=== PATIENT | male | born 1950 | race Caucasian/White ===

== ENCOUNTER → 2017-01-06 | Outpatient (CLI) | payer BC ==
[~2017-01-06] MED LIST: ONDA4TAB10 SL
[2017-01-06 14:21] LABS: INFLUENZA A PCR Neg for Influ A (NEG); INFLUENZA B PCR Neg for Influ B (NEG)
== END | disposition home or self-care (01) ==
LOC: C.LABMFLN 13:49
PROVIDERS: ATTEND Family Medicine
DX: R69 Illness, unspecified (principal)

== ENCOUNTER 2017-01-10 16:43 | Emergency (ER) | payer BC ==
[~2017-01-10] VITALS: Ht 182.9 cm; Wt 106.0 kg
[2017-01-10 16:53] VITALS: TEMP 36.7; Ht 182.9 cm; Wt 106.0 kg
[2017-01-10] MEDS ORDERED: ONDANSETRON INJ 2 MG/ML 2 ML VIAL IV STA (17:46)
[2017-01-10] MEDS ORDERED: KETOROLAC TROMETHAMINE 30 MG/ML VIAL IV STA (17:46)
[2017-01-10] MEDS ORDERED: SODIUM CHLORIDE 0.9% 1000ML 1,000 ML IV STA (17:46)
--- NOTE | 2017-01-10 18:09 | EMERGENCY ROOM VISIT NOTE ---
History Report prepared by Pilar: Yaneth Jorge Under the Supervision of: Dr. Duane Tineo M.D. First contact with patient: 17:38 Chief Complaint: VOMITING Stated Complaint: VOMITING,DIARRHEA,COUGHING Nursing Triage Summary: Patient c/o of diarrhea, cough, "rattling in the lungs", nausea and vomiting since Friday last week. History of Present Illness The patient is a 66 year old male who presents to the Emergency Room with complaints of persistent vomiting that started about 4 hours ago. The patient states that he started feeling sick one week ago. He saw his PCP and they prescribed him Tamiflu along with an antibiotic because they said his "lungs were rattling." He didn't feel well on Friday so he called and went back in. He tested negative for the flu at that time, but they told him to finish the Tamiflu and his antibiotics. The patient states that he worked the last two nights and felt well when he got home this morning. He went to sleep and when he woke up around 1300 he began experiencing nausea, vomiting, and diarrhea. The patient states that the vomit is green in color. He experienced abdominal pain prior to vomiting. He states that he is also experiencing a cough and chest congestion. The patient did not try to relieve his symptoms with Tylenol or ibuprofen. He still has his gallbladder and appendix. Source of History: patient Onset: 4 hours ago Quality: other (vomiting) Timing: other (persistent) Associated Symptoms: + abdominal pain, + cough, + diarrhea, + nausea Note: chest congestion Review of Systems See HPI for pertinent positives & negatives. A total of 10 systems reviewed and were otherwise negative. Past Medical & Surgical Surgical Problems: (1) Hernia Family History No significant family history Social History Smoking Status: Never Smoker Smokeless Tobacco Use: No Alcohol Use: none Drug Use: none Marital Status: Housing Status: lives with significant other Occupation Status: employed Current/Historical Medications Scheduled Ondasetron Odt (Zofran Odt), 4 MG SL Q6H Allergies Coded Allergies: Celecoxib (Unverified Allergy, Unknown, "HIVES,RED SPOT HYDABURG", 01/10/17) Physical Exam Vital Signs Date Time Temp Pulse Resp B/P Pulse Ox O2 Delivery O2 Flow Rate FiO2 01/10/17 20:33 110 18 109/70 98 01/10/17 18:21 111 01/10/17 18:17 97 Room Air 01/10/17 16:53 36.7 114 18 134/81 96 Room Air Physical Exam GENERAL: Patient is a healthy-appearing well-nourished male. HEAD: Normocephalic atraumatic EYES: Ocular movements intact pupils equal and react to light OROPHARYNX mucous membranes are moist no exudates present no erythema or edema present NECK: Supple no nuchal rigidity CHEST: Good equal expansion LUNGS: Clear and equal to auscultation CARDIAC: Normal S1 and S2 ABDOMEN: Soft nontender no guarding BACK: No CVA tenderness EXTREMITIES: No pain upon palpation normal muscle strength in all groups no clubbing cyanosis or edema NEURO: Patient is following commands is answering questions appropriately. Alert and oriented x3 Cranial Nerves 2-12 grossly intact Medical Decision & Procedures ER Provider Diagnostic Interpretation: X-ray results as stated below per interpretation by me and the radiologist: PA CHEST RADIOGRAPH AND UPRIGHT AND SUPINE AP RADIOGRAPHS OF THE ABDOMEN IMPRESSION: 1. No free air or evidence of bowel obstruction. 2. No acute cardiopulmonary findings. 3. Mild elevation of the right hemidiaphragm. Electronically signed by: Ric Flores M.D. 01/10/2017 7:07 PM Dictated Date/Time: 01/10/2017 7:04 PM Laboratory Results 01/10/17 18:38 Red Blood Count 5.41, Mean Corpuscular Volume 80.6, Mean Corpuscular Hemoglobin 27.2, Mean Corpuscular Hemoglobin Concent 33.7, Mean Platelet Volume 9.3, Neutrophils (%) (Auto) 89.8, Lymphocytes (%) (Auto) 2.8, Monocytes (%) (Auto) 6.3, Eosinophils (%) (Auto) 0.8, Basophils (%) (Auto) 0.1, Neutrophils # (Auto) 8.76, Lymphocytes # (Auto) 0.27, Monocytes # (Auto) 0.61, Eosinophils # (Auto) 0.08, Basophils # (Auto) 0.01 01/10/17 18:38 Test 01/10/17 00:00 01/10/17 18:38 Influenza Type A (RT-PCR) Neg for Influ A (NEG) Influenza Type B (RT-PCR) Neg for Influ B (NEG) White Blood Count 9.75 K/uL (4.8-10.8) Red Blood Count 5.41 M/uL (4.7-6.1) Hemoglobin 14.7 g/dL (14.0-18.0) Hematocrit 43.6 % (42-52) Mean Corpuscular Volume 80.6 fL (80-100) Mean Corpuscular Hemoglobin 27.2 pg (25-34) Mean Corpuscular Hemoglobin Concent 33.7 g/dl (32-36) Platelet Count 227 K/uL (130-400) Mean Platelet Volume 9.3 fL (7.4-10.4) Neutrophils (%) (Auto) 89.8 % Lymphocytes (%) (Auto) 2.8 % Monocytes (%) (Auto) 6.3 % Eosinophils (%) (Auto) 0.8 % Basophils (%) (Auto) 0.1 % Neutrophils # (Auto) 8.76 K/uL (1.4-6.5) Lymphocytes # (Auto) 0.27 K/uL (1.2-3.4) Monocytes # (Auto) 0.61 K/uL (0.11-0.59) Eosinophils # (Auto) 0.08 K/uL (0-0.5) Basophils # (Auto) 0.01 K/uL (0-0.2) RDW Standard Deviation 40.5 fL (36.4-46.3) RDW Coefficient of Variation 13.7 % (11.5-14.5) Immature Granulocyte % (Auto) 0.2 % Immature Granulocyte # (Auto) 0.02 K/uL (0.00-0.02) Anion Gap 10.0 mmol/L (3-11) Est Creatinine Clear Calc Drug Dose 98.6 ml/min Estimated GFR () 98.2 Estimated GFR (Non- 84.7 BUN/Creatinine Ratio 17.1 (10-20) Calcium Level 9.0 mg/dl (8.5-10.1) Total Bilirubin 0.9 mg/dl (0.2-1) Aspartate Amino Transf (AST/SGOT) 17 U/L (15-37) Alanine Aminotransferase (ALT/SGPT) 26 U/L (12-78) Alkaline Phosphatase 54 U/L (45-117) Total Protein 7.3 gm/dl (6.4-8.2) Albumin 3.8 gm/dl (3.4-5.0) Globulin 3.5 gm/dl (2.5-4.0) Albumin/Globulin Ratio 1.1 (0.9-2) Lipase 141 U/L (73-393) Labs reviewed by ED physician. Medications Administered Medications (Trade) Dose Ordered Sig/Ady Route Start Time Stop Time Status Last Admin Dose Admin Sodium Chloride (Nss 1000ml) 1,000 ml @ 999 mls/hr Q1H1M STAT IV 01/10/17 17:46 01/10/17 18:46 DC 01/10/17 18:43 999 MLS/HR Ondansetron HCl (Zofran Inj) 4 mg NOW STAT IV 01/10/17 17:46 01/10/17 17:48 DC 01/10/17 18:43 4 MG Ketorolac Tromethamine (Toradol Inj) 30 mg NOW STAT IV 01/10/17 17:46 01/10/17 17:48 DC 01/10/17 18:43 30 MG ECG Indication: abdominal pain, nausea Rate (beats per minute): 114 Rhythm: sinus tachycardia Findings: no acute ischemic change, no ectopy ED Course 1739: Past medical records reviewed. The patient was evaluated in room B3. A complete history and physical examination was performed. 1745: Ordered Toradol Inj 30 mg IV, Zofran Inj 4 mg IV, Sodium Chloride 1000 ml @ 999 mls/hr IV 1957: Upon reexamination the patient is doing well. I discussed results and treatment plan with the patient. He verbalizes agreement and understanding. The patient is ready for discharge. 1999: Ordered Ondansetron HCl 1 homepack PO 2001: Ordered Albuterol 2 puffs INH Medical Decision Differential diagnosis: Etiologies such as appendicitis, diverticulitis, PUD, biliary pathology, UTI, pancreatitis, obstruction, mesenteric ischemia, aortic pathology, infections, inflammatory bowel disease, renal colic, as well as others were entertained. This is a 66-year-old male who presents emergency department complaining of nausea vomiting diarrhea. The patient was observed for a total of 3 hours in the emergency department and at no time was he able to produce a stool sample. An IV was established, patient given normal saline bolus. Serial abdominal examinations were performed on the patient in the emergency department and at no time did the patient exhibit a surgical abdomen. Based on these findings I felt that the patient could be treated conservatively. He was given Zofran and Toradol. Repeat examination revealed improvement patient's symptoms. I do believe that the patient can be safely discharged home. I suspect his diarrhea is results of azithromycin. I encouraged probiotic yogurt. Patient and are in agreement with the treatment plan. Impression Primary Impression: Gastroenteritis Scribe Attestation The scribe's documentation has been prepared under my direction and personally reviewed by me in its entirety. I confirm that the note above accurately reflects all work, treatment, procedures, and medical decision making performed by me. Departure Information Dispostion Home / Self-Care Prescriptions Ondasetron Odt (ZOFRAN ODT) 4 Mg Tab 4 MG SL Q6H for Nausea, #6 TAB Prov: Duane Tineo MD 01/10/17 Referrals Scotty Gallo M.D. (PCP) Forms HOME CARE DOCUMENTATION FORM, IMPORTANT VISIT INFORMATION Patient Instructions ED Diet Vomiting Diarrhea, ED Gastroenteritis Report Pend, My [facility], Ondansetron Hydrochloride Oral tablet Additional Instructions Take 4 mg zofran every 6 hours Take 1000 mg TYlenol every 6 hours You have been examined and treated today on an emergency basis only. This is not a substitute for, or an effort to provide, complete comprehensive medical care. It is impossible to recognize and treat all injuries or illnesses in a single emergency department visit. It is therefore important that you follow up closely with Dr Gallo. Call as soon as possible for an appointment. Thank you for your time and consideration. I look forward to speaking with you again soon. Please don't hesitate to call us if you have any questions.
[2017-01-10 18:17] VITALS: O2SAT 97
[2017-01-10 18:47] LABS: BASO % 0.1 %; BASO ABS # 0.01 K/uL (0-0.2); COMPLETE YES; EOS % 0.8 %; HEMATOCRIT 43.6 % (42-52); IG% 0.2 %; LYMPH % 2.8 %; LYMPH ABS # 0.27 K/uL (1.2-3.4); MEAN CELL VOLUME 80.6 fL (80-100); MEAN CORPUSCULAR HEMOGLOBIN 27.2 pg (25-34); MEAN CORPUSCULAR HGB CONC 33.7 g/dl (32-36); MEAN PLATELET VOLUME 9.3 fL (7.4-10.4); MONO % 6.3 %; NEUT % 89.8 %; PLATELET COUNT 227 K/uL (130-400); RED BLOOD COUNT 5.41 M/uL (4.7-6.1); WHITE BLOOD COUNT 9.75 K/uL (4.8-10.8)
--- NOTE | 2017-01-10 19:08 | DIAGNOSTIC IMAGING REPORT ---
PA CHEST RADIOGRAPH AND UPRIGHT AND SUPINE AP RADIOGRAPHS OF THE ABDOMEN CLINICAL HISTORY: Nausea, vomiting and diarrhea. COMPARISON STUDY: No previous studies for comparison. FINDINGS: There is mild elevation of the right hemidiaphragm. Lungs are clear. There is no pneumothorax or pleural effusion. Cardiac size is normal. Mediastinal contours are normal. There is no evidence of pulmonary edema. No free air is identified. There is a relative paucity of bowel gas. There is no convincing evidence for a bowel obstruction. Pelvic calcifications statistically represent phleboliths. IMPRESSION: 1. No free air or evidence of bowel obstruction. 2. No acute cardiopulmonary findings. 3. Mild elevation of the right hemidiaphragm. Electronically signed by: Ric Flores M.D. 01/10/2017 7:07 PM Dictated Date/Time: 01/10/2017 7:04 PM
[2017-01-10 19:13] LABS: BUN/CREATININE RATIO 17.1 (10-20); CREATININE 0.94 mg/dl (0.60-1.40); POTASSIUM 4.2 mmol/L (3.5-5.1)
[2017-01-10 19:16] LABS: ALB/GLOB RATIO 1.1 (0.9-2)
[2017-01-10 19:42] LABS: INFLUENZA A PCR Neg for Influ A (NEG); INFLUENZA B PCR Neg for Influ B (NEG)
[2017-01-10] MEDS ORDERED: ONDANSETRON HOME PACK 4MG OD TAB PO ONE (20:00)
[2017-01-10] MEDS ORDERED: ONDA4TAB10 SL (20:01)
[2017-01-10] MEDS ORDERED: ALBUTEROL HFA 8 GM INHALER INH STA (20:02)
[2017-01-10 20:33] VITALS: BP 109/70; PULSE 110; O2SAT 98
== END 2017-01-10 20:34 | disposition home or self-care (01) ==
LOC: EDBD 16:44 → C.EDB 16:44 → MERGE 16:44 → C.EDB 20:34
DX: K52.9 Noninfective gastroenteritis and colitis, unspecified (principal); R00.0 Tachycardia, unspecified; Z88.8 Allergy status to other drugs, medicaments and biological substances

== ENCOUNTER → 2017-02-03 | Outpatient (CLI) | payer BC ==
[2017-02-03 18:22] LABS: AST/SGOT 17 U/L (15-37); BLOOD UREA NITROGEN 13 mg/dl (7-18); BUN/CREATININE RATIO 13.1 (10-20); CALCIUM 9.8 mg/dl (8.5-10.1); CARBON DIOXIDE 28 mmol/L (21-32); CHLORIDE 103 mmol/L (98-107); CHOLESTEROL 220 mg/dl (0-200); CREATININE 0.99 mg/dl (0.60-1.40); GLUCOSE 95 mg/dl (70-99); GLUCOSE,FASTING 95 mg/dl (70-99); SODIUM 141 mmol/L (136-145); TRIGLYCERIDES 128 mg/dl (0-150); VERY LOW DENSITY LIPOPROT CALC 26 mg/dl
[2017-02-03 18:32] LABS: CHOLESTEROL/HDL RATIO 5.4; HDL CHOLESTEROL 41 mg/dl; LDL CHOLESTEROL CALCULATED 153 mg/dl
[2017-02-03 18:50] LABS: BASO % 0.6 %; BASO ABS # 0.03 K/uL (0-0.2); COMPLETE YES; EOS % 4.2 %; HEMATOCRIT 40.2 % (42-52); LYMPH ABS # 1.51 K/uL (1.2-3.4); MEAN CELL VOLUME 80.1 fL (80-100); MEAN CORPUSCULAR HEMOGLOBIN 26.5 pg (25-34); MEAN CORPUSCULAR HGB CONC 33.1 g/dl (32-36); MEAN PLATELET VOLUME 9.8 fL (7.4-10.4); MONO % 15.2 %; PLATELET COUNT 183 K/uL (130-400); RED BLOOD COUNT 5.02 M/uL (4.7-6.1); WHITE BLOOD COUNT 5.21 K/uL (4.8-10.8)
== END | disposition home or self-care (01) ==
LOC: C.LABMFLN 14:07
PROVIDERS: ATTEND Family Medicine
DX: E78.00 Pure hypercholesterolemia, unspecified (principal); Z12.5 Encounter for screening for malignant neoplasm of prostate; R55 Syncope and collapse; R07.89 Other chest pain

== ENCOUNTER → 2017-02-28 | Outpatient (CLI) | payer BC ==
--- NOTE | 2017-02-28 11:35 | EXERCISE STRESS ECHO ---
*NOTICE TO RECEIVING REPUBLICAN AGENCY This information is strictly Confidential and protected under [place] law. [place] law prohibits you from making any further disclosure of this information unless further disclosure is expressly permitted by the written consent of the person to whom it pertains or is authorized by law. A general authorization for the release of medical or other information is not sufficient for this purpose. Hospital accepts no responsibility if the information is made available to any other person, INCLUDING THE PATIENT. Interpretation Summary * Name: ANASTASIA BLACKWELL Study Date: 02/28/2017 08:13 AM BP: 137/83 mmHg * Patient Location: [facility] HR: 61 * : 1950 (M/d/yyyy) Gender: Male Height: 72 in * Age: 66 yrs Ethnicity: [place] Weight: 230 lb * Ordering Physician: Scotty Gallo * Referring Physician: Scotty Gallo * Performed By: Houston Galo [facility] * * Reason For Study: Chest Pain * BSA: 2.3 m2 * -- Conclusions -- * Left ventricular systolic function is normal. * The left atrium is mildly dilated. * Diastolic dysfunction, Grade II (pseudonormalization pattern). * There is mild mitral regurgitation. * Borderline aortic root dilatation. * Good exercise tolerance with hypertensive response to exercise. * Low risk study with notable EKG changes but no chest pain and normal echocardiographic images. Procedure Details * ECHOEX, CPT #[id number] * ECHO COLOR FLOW, CPT #[id number] * ECHO DOPPLER, CPT #[id number] Left Ventricular Findings with Stress * Good exercise tolerance with hypertensive response to exercise. Low risk study with notable EKG changes but no chest pain and normal echocardiographic images. Left Ventricle * The left ventricle is grossly normal size. * There is normal left ventricular wall thickness. * Ejection Fraction = 60-65%. * Left ventricular systolic function is normal. * Diastolic dysfunction, Grade II (pseudonormalization pattern). * The left ventricular wall motion is normal. Right Ventricle * The right ventricle is grossly normal size. * The right ventricular systolic function is normal. Atria * The left atrium is mildly dilated. * Right atrial size is normal. Mitral Valve * The mitral valve anatomy is normal. * There is mild mitral regurgitation. Tricuspid Valve * The tricuspid valve is not well visualized, but is grossly normal. * Significant tricuspid regurgitation is absent. Aortic Valve * The aortic valve is normal in structure and function. * The aortic valve is trileaflet. * No hemodynamically significant valvular aortic stenosis. * No aortic regurgitation is present. Great Vessels * Borderline aortic root dilatation. Pericardium * There is no pericardial effusion. Stress Parameters * The stress portion of this study was personally supervised by the undersigned interpreting physician. * Rest heart rate was '61' BPM. * Rest blood pressure was '137/83' * Maximum heart rate achieved was 157 bpm. * Maximum heart rate was 101 % of maximum age-predicted heart rate. * Maximum blood pressure was '218/89' * Total exercise time was '8:00' * Maximum exercise MET level achieved was '10.1' METS * Maximum treadmill speed was '3.4' miles per hour. * Maximum treadmill elevation was '14'% grade. * Exercise was terminated due to 'Dyspnea' Left Ventricular Findings with Stress * Normal baseline EKG with development of 2-3mm of upsloping ST depression at peak exercise which resolved rapidly in recovery Normal baseline echocardiogram without inducible wall motion abnormalities Dyspnea reported but no chest pain. Martínez treadmill score: -2 (moderate risk) Hypertensive response to exercise MMode 2D Measurements and Calculations IVSd 1.1 cm IVSs 1.5 cm LVIDd 5.2 cm LVIDs 3.2 cm LVPWd 1.0 cm LVPWs 1.5 cm IVS/LVPW 1.1 FS 38.9 % EDV(Teich) 129.6 ml ESV(Teich) 40.2 ml EF(Teich) 69.0 % EDV(cubed) 140.7 ml ESV(cubed) 32.0 ml EF(cubed) 77.2 % % IVS thick 38.1 % % LVPW thick 46.7 % LV mass(C)d 208.3 grams LV mass(C)dI 92.1 grams/m\S\2 LV mass(C)s 169.7 grams LV mass(C)sI 75.1 grams/m\S\2 CO(Teich) 4.0 l/min CI(Teich) 1.8 l/min/m\S\2 SV(Teich) 89.4 ml SI(Teich) 39.5 ml/m\S\2 CO(cubed) 4.9 l/min CI(cubed) 2.2 l/min/m\S\2 SV(cubed) 108.7 ml SI(cubed) 48.1 ml/m\S\2 Ao root diam 4.0 cm Ao root area 12.7 cm\S\2 ACS 2.0 cm LA dimension 4.4 cm LA/Ao 1.1 LVAd ap4 36.4 cm\S\2 LVLd ap4 8.9 cm EDV(MOD-sp4) 124.0 ml LVAs ap4 20.6 cm\S\2 LVLs ap4 7.4 cm ESV(MOD-sp4) 47.0 ml EF(MOD-sp4) 62.1 % LVAd ap2 28.6 cm\S\2 LVLd ap2 8.1 cm EDV(MOD-sp2) 86.0 ml LVAs ap2 16.7 cm\S\2 LVLs ap2 6.8 cm ESV(MOD-sp2) 34.0 ml EF(MOD-sp2) 60.5 % CO(MOD-sp4) 3.5 l/min CI(MOD-sp4) 1.5 l/min/m\S\2 SV(MOD-sp4) 77.0 ml SI(MOD-sp4) 34.1 ml/m\S\2 CO(MOD-sp2) 2.3 l/min CI(MOD-sp2) 1.0 l/min/m\S\2 SV(MOD-sp2) 52.0 ml SI(MOD-sp2) 23.0 ml/m\S\2 Doppler Measurements and Calculations MV E max samuel 62.7 cm/sec MV A max samuel 47.3 cm/sec MV E/A 1.3 MV P1/2t max samuel 89.0 cm/sec MV P1/2t 66.0 msec MVA(P1/2t) 3.3 cm\S\2 MV dec slope 395.4 cm/sec\S\2 MV dec time 0.24 sec Ao V2 max 90.3 cm/sec Ao max PG 3.3 mmHg Ao max PG (full) -0.46 mmHg LV V1 max PG 3.7 mmHg LV V1 max 96.5 cm/sec PA V2 max 70.3 cm/sec PA max PG 2.0 mmHg TR max samuel 179.2 cm/sec
== END | disposition home or self-care (01) ==
LOC: C.CPL 07:38
PROVIDERS: ATTEND Family Medicine
DX: R07.89 Other chest pain (principal)

== ENCOUNTER → 2017-09-02 | Outpatient (CLI) | payer BC ==
[2017-09-02 18:14] LABS: CHOLESTEROL/HDL RATIO 4.3
== END | disposition home or self-care (01) ==
LOC: C.LABMFLN 15:33
PROVIDERS: ATTEND Family Medicine
DX: E78.00 Pure hypercholesterolemia, unspecified (principal)

== ENCOUNTER → 2018-03-03 | Outpatient (CLI) | payer BC | END | disposition home or self-care (01) | LOC: C.LABMFLN 07:13 | PROVIDERS: ATTEND Family Medicine | DX: Z12.5 Encounter for screening for malignant neoplasm of prostate (principal); E78.00 Pure hypercholesterolemia, unspecified ==